=== PATIENT | female | born 1935 | race Caucasian/White ===

== ENCOUNTER → 2016-12-14 18:56 | Outpatient (CLI) | payer MEDICARE, OTHER | END | disposition home or self-care (01) | LOC: D.LABREF 18:56 | DX: R06.02 Shortness of breath (principal) ==

== ENCOUNTER → 2016-12-29 13:33 | Outpatient (CLI) | payer MEDICARE, OTHER | END | disposition home or self-care (01) | LOC: D.RT 13:33 → EDBD 14:00 | DX: J44.9 Chronic obstructive pulmonary disease, unspecified (principal) ==